=== PATIENT | male | born 1990 | race American Indian/Alaskan Native ===

== ENCOUNTER 2016-09-28 08:25 | Emergency (ER) | payer SELFPAY ==
[2016-09-28 09:33] LABS: Hematocrit 43.1 % (35.5-45.6); Hemoglobin 14.5 gm/dl (11.8-15.2); Mean Corpuscular HGB Conc 34 % (32-34); Mean Corpuscular Hemoglobin 32 pg (28-32); Mean Corpuscular Volume 94 fl (84-94); Platelet Count 263 K/mm3 (140-440); Red Blood Count 4.56 M/mm3 (3.65-5.03); White Blood Count 4.3 K/mm3 (4.5-11.0)
[2016-09-28 09:34] LABS: Basophils % (Auto) 0.3 % (0.0-1.8); Eosinophils % (Auto) 1.4 % (0.0-4.3)
--- NOTE | 2016-09-28 09:39 | XRay Report ---
ROUTINE CHEST, TWO VIEWS: History: Chest pain. PA and lateral views demonstrate the heart and mediastinal contour to be of normal size and shape. The lungs are clear and fully expanded and the soft tissues and bony structures are normal. IMPRESSION: Normal study.
[2016-09-28 09:45] LABS: Anion Gap 17 mmol/L; BUN/Creatinine Ratio 8.88; Blood Urea Nitrogen 8 mg/dL (9-20); Carbon Dioxide 25 mmol/L (22-30); Chloride 99.6 mmol/L (98-107); Creatine Kinase 114 units/L (55-170); Glucose 95 mg/dL (75-100); Potassium 4.2 mmol/L (3.6-5.0); Sodium 137 mmol/L (137-145)
--- NOTE | 2016-09-28 13:18 | Cat Scan Report ---
CT angiography of the chest including 3-D reconstructed images. History: Chest pain shortness of breath. Findings: There is no evidence of pulmonary emboli. The lungs are clear. The mediastinum and hilar regions are normal. Impression: Normal study.
[2016-09-28 14:07] VITALS: BP 132/82
--- NOTE | 2016-09-28 18:49 | Emergency Department Report ---
Entered by YUSUF HAYES, acting as scribe for CAMILA CROWDER NP. ED Chest Pain HPI - General Chief Complaint: Chest Pain Stated Complaint: CHEST PAIN AND HEADACHE Time Seen by Provider: 09/28/16 09:53 Source: patient Mode of arrival: Ambulatory Limitations: No Limitations - History of Present Illness Initial Comments: This is a 25 year old male, nontoxic, well nourished in appearance, no acute signs of distress, with PMHx of asthma, presents to ED with c/o SOB and chest pain since last night. The chest pain is described as aching and pressure in his central chest area. Patient states aggravation while sitting up and movement and alleviated when lying down. Patient denies radiation of chest pain. Patient denies difficulty breathing. Denies sick contact. Denies jaw pain or extremity pain. Patient denies long car rides, recent travels, or recent hospital stays. Patient denies blurry vision, fever, headache, stiff neck, abd pain, numbness, tingling, chills, sore throat, nausea, and vomiting. NKDA. Denies PMH. MD Complaint: chest pain -: Gradual, Last night Onset: other (during movement) Pain Location: substernal Pain Radiation: none Severity: moderate Severity scale (0 -10): 4 Quality: aching, pressure Consistency: constant Improves With: remaining still Worsens With: movement re: denies: nausea, vomting, diaphoresis, dyspnea, sense of impending doom Other Symptoms: cough. denies: fever, syncope, rash, acid taste in mouth, leg swelling, palpitations, burping Treatments Prior to Arrival: none Aspirin use within the Past 7 Days: (0) No - Related Data On Oral Contraceptives: No Previous Rx's Medication Instructions Recorded Last Taken Type Ranitidine HCl [Zantac] 300 mg PO QDAY #60 tablet 05/29/13 Unknown Rx Acetaminophen [Arthritis Pain 650 mg PO Q6H #20 tablet.er 09/28/16 Unknown Rx Relief] predniSONE [Deltasone] 20 mg PO BID #10 tab 09/28/16 Unknown Rx Allergies Allergy/AdvReac Type Severity Reaction Status Date / Time No Known Allergies Allergy Verified 09/28/16 08:35 Heart Score - HEART Score History: Slightly suspicious EKG: Non-specific Age: < 45 Risk factors: No known risk factors Troponin: < normal limit HEART Score: 1 ED Review of Systems Comment: All other systems reviewed and negative Constitutional: denies: chills, fever Eyes: denies: eye pain, eye discharge, vision change ENT: denies: ear pain, throat pain Respiratory: shortness of breath. denies: cough, orthopnea, SOB with exertion, SOB at rest, stridor, wheezing Cardiovascular: chest pain. denies: palpitations, dyspnea on exertion, orthopnea, edema, syncope, paroxysmal nocturnal dyspnea Endocrine: no symptoms reported Gastrointestinal: denies: abdominal pain, nausea, vomiting, diarrhea Genitourinary: denies: urgency, dysuria Musculoskeletal: denies: back pain, joint swelling, arthralgia Skin: denies: rash, lesions Neurological: denies: headache, weakness, numbness, paresthesias, confusion, abnormal gait, vertigo Psychiatric: denies: anxiety, depression Hematological/Lymphatic: denies: easy bleeding, easy bruising ED Past Medical Hx - Past Medical History Hx Hypertension: No Hx Heart Attack/AMI: No Hx Congestive Heart Failure: No Hx Diabetes: No Hx Deep Vein Thrombosis: No Hx Pulmonary Embolism: No Hx Liver Disease: No Hx Renal Disease: No Hx Sickle Cell Disease: No Hx Arthritis: No Hx Seizures: No Hx Kidney Stones: No Hx Asthma: Yes Hx COPD: No Hx Tuberculosis: No Hx Dementia: No Hx HIV: No Additional medical history: bleeding ulcers - Surgical History Hx Coronary Stent: No Hx Open Heart Surgery: No Hx Pacemaker: No Hx Internal Defibrillator: No Hx Cholecystectomy: No Hx Appendectomy: No Hx Breast Surgery: No - Social History Smoking Status: Current Every Day Smoker Substance Use Type: Alcohol - Medications Home Medications: Home Medications Medication Instructions Recorded Confirmed Last Taken Type Ranitidine HCl [Zantac] 300 mg PO QDAY #60 tablet 05/29/13 Unknown Rx Acetaminophen [Arthritis Pain 650 mg PO Q6H #20 tablet.er 09/28/16 Unknown Rx Relief] predniSONE [Deltasone] 20 mg PO BID #10 tab 09/28/16 Unknown Rx ED Physical Exam - General Limitations: No Limitations General appearance: alert, in no apparent distress - Head Head exam: Present: atraumatic, normocephalic - Eye Eye exam: Present: normal appearance, PERRL, EOMI. Absent: scleral icterus, conjunctival injection, nystagmus, periorbital swelling, periorbital tenderness Pupils: Present: normal accommodation. Absent: irregular - ENT ENT exam: Present: normal exam, normal orophraynx, mucous membranes moist, TM's normal bilaterally, normal external ear exam - Neck Neck exam: Present: normal inspection, full ROM. Absent: tenderness, meningismus, lymphadenopathy, thyromegaly - Respiratory Respiratory exam: Present: normal lung sounds bilaterally. Absent: respiratory distress, wheezes, rales, rhonchi, stridor, chest wall tenderness, accessory muscle use, decreased breath sounds, prolonged expiratory - Cardiovascular Cardiovascular Exam: Present: regular rate, normal rhythm, normal heart sounds. Absent: bradycardia, tachycardia, irregular rhythm, systolic murmur, diastolic murmur, rubs, gallop - GI/Abdominal GI/Abdominal exam: Present: soft, normal bowel sounds - Rectal Rectal exam: Present: deferred - Extremities Exam Extremities exam: Present: normal inspection, full ROM, normal capillary refill. Absent: tenderness, pedal edema, joint swelling, calf tenderness - Back Exam Back exam: Present: normal inspection, full ROM. Absent: tenderness, CVA tenderness (R), CVA tenderness (L), muscle spasm, paraspinal tenderness, vertebral tenderness, rash noted - Neurological Exam Neurological exam: Present: alert, oriented X3, CN II-XII intact, normal gait, reflexes normal - Psychiatric Psychiatric exam: Present: normal affect, normal mood - Skin Skin exam: Present: warm, dry, intact, normal color. Absent: rash ED Course Vital Signs 09/28/16 08:35 Temperature 99.3 F Pulse Rate 90 Respiratory 16 Rate Blood Pressure 135/87 O2 Sat by Pulse 100 Oximetry - Reevaluation(s) Reevaluation #1: 09/28/16 11:30 Patient is able to speak in full sentences with no signs of distress noted. - Consultations Consultation #1: 09/28/16 13:39 Dr Guidry has been notified of patient and lab/xray findings and agrees to d/c plan of care. GIBRAN score - Gibran Score Age > 65: (0) No Aspirin use within the Past 7 Days: (0) No 3 or more CAD Risk Factors: (0) No 2 or more Angina events in past 24 hrs: (0) No Known CAD with more than 50% Stenosis: (0) No Elevated Cardiac Markers: (0) No ST Deviation Greater than 0.5mm: (0) No GIBRAN Score: 0 ED Medical Decision Making - Lab Data Result diagrams: 09/28/16 09:03 09/28/16 09:03 - Medical Decision Making Ed course: This is a 25-year-old male that presents with costochondritis 1- patient was examined by myself. Patient does not seem in any distress. Speaking in full sentences with no distress. Xray and CTA has been obtained with normal findings. two different trop with normal results obtained. EKG unchanged x2. 2- Patient was notified of EKG findings of nonspecific ST and T wave abnormality and was instructed to follow-up with a state comptroller/primary care doctor in 24 hours or if symptoms such as severe chest pain, shortness of breathe, tiredness, headache, fever, chills, return to the emergency department as soon as possible,. 3- Patient received Prednisone and acetaminophen of discharge. They state he gets ulcers with ibuprofen. 4- At time time of discharge, the patient does not seem toxic or ill in appearance. No acute signs of distress noted. Patient agrees to discharge treatment plan of care. No further questions noted by the patient. 5- Dr. Guidry has been notified with patient and EKG/lab findings. Agrees to the discharge plan of care. ED Disposition Clinical Impression: Costochondritis, acute Disposition: DC-01 TO HOME OR SELFCARE Is pt being admited?: No Does the pt Need Aspirin: No Condition: Stable Instructions: Acetaminophen (By mouth), Prednisone (By mouth), Costochondritis (ED) Additional Instructions: As discussed about your EKG findings, follow-up with a state comptroller/primary care doctor within 24 hours or if symptoms such as severe chest pain, shortness of breathe, tiredness, headache, fever, chills, return to the emergency department as soon as possible. Take prednisone as prescibed Prescriptions: Acetaminophen [Arthritis Pain Relief] 650 mg PO Q6H #20 tablet.er predniSONE [Deltasone] 20 mg PO BID #10 tab Referrals: [facility] [Outside] - 3-5 Days [facility] [Outside] - 3-5 Days HELADIO ROSENBERG JR, MD [Staff Physician] - 3-5 Days PRIMARY MD JOÃO [Primary Care Provider] - 24 Hours OCTAVIO ROBERTS MD [Staff Physician] - 24 Hours Forms: Work/School Release Form(ED) This documentation as recorded by the FREDDY newell PEARL,accurately reflects the service I personally performed and the decisions made by ,CAMILA CROWDER, CHUY.
== END 2016-09-28 14:07 | disposition home or self-care (01) ==
LOC: ED 08:25
DX: M94.0 Chondrocostal junction syndrome [Tietze] (principal); J45.909 Unspecified asthma, uncomplicated; F17.200 Nicotine dependence, unspecified, uncomplicated
CPT/HCPCS: 36415; 71020; 71275; 80048; 82550; 82553; 83880; 84484; 85025; 85379; 93005; 93010; 99284; Q9967

== ENCOUNTER 2018-06-27 11:53 | Emergency (ER) | payer OTHER ==
[2018-06-27 12:01] VITALS: BP 116/63
--- NOTE | 2018-06-27 12:01 | Emergency Department Report ---
Blank Doc - Documentation Documentation: This is a 27-year-old male that presents with right knee pain. Stated was at work and twisted it. This initial assessment/diagnostic orders/clinical plan/treatment(s) is/are subject to change based on patient's health status, clinical progression and re- assessment by fellow clinical providers in the ED. Further treatment and workup at subsequent clinical providers discretion. Patient/guardians urged not to elope from the ED as their condition may be serious if not clinically assessed and managed. Initial orders include: 1- Patient sent to [facility] for further evaluation and treatment 2- xray
--- NOTE | 2018-06-27 13:24 | Emergency Department Report ---
ED Extremity Problem HPI - General Chief complaint: Extremity Injury, Lower Stated complaint: RT LEG PAIN Time Seen by Provider: 06/27/18 12:00 Source: patient Mode of arrival: Ambulatory Limitations: No Limitations - History of Present Illness Initial comments: Pt is a 27 yo male who presents to the ED with c/o right knee pain that began today. The patient states he was swinging a sledge hammer at work and did a twisting motion of the knee and began to feel pain. he denies any popping sensation. He denies any numbness or weakness. He is able to move the toes. He has been ambulatory with a limp. He states that last year he had a femur fx with screw placed on the right side and states that he takes oxycodone 10 mg at home in [place]. He states he did not bring the pain medication with him on the job in [place]. He denies any PMHx or any allergies to medications. Severity scale (0 -10): 10 - Related Data Previous Rx's Medication Instructions Recorded Last Taken Type Ranitidine HCl [Zantac] 300 mg PO QDAY #60 tablet 05/29/13 Unknown Rx Ibuprofen 600 mg PO Q6HR PRN #20 tablet 06/27/18 Unknown Rx oxyCODONE [Roxicodone TAB] 5 mg PO Q8HR PRN #10 tablet 06/27/18 Unknown Rx Allergies Allergy/AdvReac Type Severity Reaction Status Date / Time No Known Allergies Allergy Verified 09/28/16 08:35 ED Review of Systems ROS: Stated complaint: RT LEG PAIN Other details as noted in HPI Comment: All other systems reviewed and negative ED Past Medical Hx - Past Medical History Previous Medical History?: Yes Hx Hypertension: No Hx Heart Attack/AMI: No Hx Congestive Heart Failure: No Hx Diabetes: No Hx Deep Vein Thrombosis: No Hx Pulmonary Embolism: No Hx Liver Disease: No Hx Renal Disease: No Hx Sickle Cell Disease: No Hx Arthritis: No Hx Seizures: No Hx Kidney Stones: No Hx Asthma: Yes Hx COPD: No Hx Tuberculosis: No Hx Dementia: No Hx HIV: No Additional medical history: bleeding ulcers - Surgical History Past Surgical History?: No Hx Coronary Stent: No Hx Open Heart Surgery: No Hx Pacemaker: No Hx Internal Defibrillator: No Hx Cholecystectomy: No Hx Appendectomy: No Hx Breast Surgery: No - Social History Smoking Status: Never Smoker Substance Use Type: None - Medications Home Medications: Home Medications Medication Instructions Recorded Confirmed Last Taken Type Ranitidine HCl [Zantac] 300 mg PO QDAY #60 tablet 05/29/13 Unknown Rx Ibuprofen 600 mg PO Q6HR PRN #20 tablet 06/27/18 Unknown Rx oxyCODONE [Roxicodone TAB] 5 mg PO Q8HR PRN #10 tablet 06/27/18 Unknown Rx ED Physical Exam - General Limitations: No Limitations General appearance: alert, in no apparent distress - Head Head exam: Present: atraumatic, normocephalic - Eye Eye exam: Present: normal appearance - ENT ENT exam: Present: mucous membranes moist - Extremities Exam Extremities exam: Present: normal inspection, full ROM (FROM of the right knee with some pain upon ROM), tenderness (TTP over the right, lateral knee, no obvious deformity ), normal capillary refill, other (no obvious joint laxity ). Absent: pedal edema, joint swelling - Neurological Exam Neurological exam: Present: alert, oriented X3 - Psychiatric Psychiatric exam: Present: normal affect, normal mood - Skin Skin exam: Present: warm, dry, intact ED Course Vital Signs 06/27/18 12:00 Temperature 98.2 F Pulse Rate 81 Respiratory 16 Rate Blood Pressure 116/63 O2 Sat by Pulse 100 Oximetry - Consultations Consultation #1: 06/27/18 13:48 had private secretary call Dr. Heller, ortho foreign exchange position clerk, was advised he was in surgery Consultation #2: 06/27/18 14:[address] Heller discussed patient history and radiology results and Dr. Heller recommended for pt to follow up in office, place knee immobilizer and give pt crutches. ED Medical Decision Making - Radiology Data Radiology results: report reviewed Ordering Physician: CAMILA CROWDER NP Date of Service: 06/27/18 Procedure(s): XR knee 3V RT Accession Number(s): [id number] cc: CAMILA CROWDER NP Fluoro Time In Minutes: RIGHT KNEE, 3 views: History: Pain. Intramedullary nimco in the femoral shaft is partially imaged. The distal screw securing the intramedullary nimco is fractured. The bony architecture is intact without evidence of fracture or dislocation. No significant soft tissue abnormality is seen. IMPRESSION: Unremarkable right knee. Fractured screw securing an intramedullary nimco in the distal femur. Correlate with the patient and the image. Transcribed By: TTR Dictated By: DARWIN FERREIRA JR, MD Electronically Authenticated By: DARWIN FERREIRA JR, MD Signed Date/Time: 06/27/18 1323 Ordering Physician: LEONORA PARTIDA Date of Service: 06/27/18 Procedure(s): XR femur 2+V RT Accession Number(s): [id number] cc: LEONORA PARTIDA Fluoro Time In Minutes: RIGHT FEMUR: HISTORY: Femur fracture with surgical fixation. A remodeling fracture is identified in the mid right femur. The fracture has been secured with an intramedullary nimco and screws. The distal screw is fractured. There is no evidence for acute femoral abnormality. IMPRESSION: Unremarkable right femur. Remodeling internally fixated fracture. Transcribed By: TTR Dictated By: DARWIN FERREIRA JR, MD Electronically Authenticated By: DARWIN FERREIRA JR, MD Signed Date/Time: 06/27/18 1434 - Medical Decision Making Pt is a 27 yo male who presents to the ED with c/o right knee pain that began today. The patient states he was swinging a sledge hammer at work and did a twisting motion of the knee and began to feel pain. he denies any popping sensation. He denies any numbness or weakness. He is able to move the toes. He has been ambulatory with a limp. He states that last year he had a femur fx with screw placed on the right side and states that he takes oxycodone 10 mg at home in [place]. He states he did not bring the pain medication with him on the job in [place]. He denies any PMHx or any allergies to medications. No obvious joint laxity, no obvious joint edema. XR of the right femur and knee reveals A remodeling fracture is identified in the mid right femur. The fracture has been secured with an intramedullary nimco and screws. The distal screw is fractured. There is no evidence for acute femoral abnormality. Pt is neurovascularly intact. Discussed case with delio Sanabria who advised knee immobilizer, crutches, and to follow up in clinic as an outpatient. Pt given referral to delio Sanabria. Advised pt to please follow up within the next 2-3 days. Return to the emergency room for any new or worsening symptoms. - Differential Diagnosis fx, sprain, strain, dislocation Critical care attestation.: If time is entered above; I have spent that time in minutes in the direct care of this critically ill patient, excluding procedure time. ED Disposition Clinical Impression: Internal fixation device (pin, nimco, or screw) mechanical complication Qualifiers: Encounter type: sequela Qualified Code(s): T84.498S - Other mechanical complication of other internal orthopedic devices, implants and grafts, sequela Right knee sprain Qualifiers: Encounter type: initial encounter Involved ligament of knee: unspecified ligament Qualified Code(s): S83.91XA - Sprain of unspecified site of right knee, initial encounter Disposition: TO HOME OR SELFCARE Is pt being admited?: No Does the pt Need Aspirin: No Condition: Stable Instructions: Knee Sprain (ED), Crutch Instructions (ED), Knee Immobilizer (ED) Additional Instructions: Please follow up with Dr. Heller, orthopedic [facility]. Please follow up with a primary care doctor in 2-3 days. Take medication as prescribed. Do not work, operate heavy machinery, or drive while taking pain medication. May elevate, rest, and ice the area. Return to the emergency room for any new or worsening symptoms. Prescriptions: Ibuprofen 600 mg PO Q6HR PRN #20 tablet PRN Reason: Pain, Moderate (4-6) oxyCODONE [Roxicodone TAB] 5 mg PO Q8HR PRN #10 tablet PRN Reason: Pain , Severe (7-10) Referrals: JASMIN LEEPREWITT MD MARIA [Primary Care Provider] - 2-3 Days ANTHONY HELLER MD [Staff Physician] - [place] Time of Disposition: 14:50 Print Language: KHMER
--- NOTE | 2018-06-27 13:28 | XRay Report ---
RIGHT KNEE, 3 views: History: Pain. Intramedullary nimco in the femoral shaft is partially imaged. The distal screw securing the intramedullary nimco is fractured. The bony architecture is intact without evidence of fracture or dislocation. No significant soft tissue abnormality is seen. IMPRESSION: Unremarkable right knee. Fractured screw securing an intramedullary nimco in the distal femur. Correlate with the patient and the image.
--- NOTE | 2018-06-27 14:38 | XRay Report ---
RIGHT FEMUR: HISTORY: Femur fracture with surgical fixation. A remodeling fracture is identified in the mid right femur. The fracture has been secured with an intramedullary nimco and screws. The distal screw is fractured. There is no evidence for acute femoral abnormality. IMPRESSION: Unremarkable right femur. Remodeling internally fixated fracture.
== END 2018-06-27 15:02 | disposition home or self-care (01) ==
LOC: ED 11:53
DX: S83.91XA Sprain of unspecified site of right knee, initial encounter (principal); J45.909 Unspecified asthma, uncomplicated; W22.09XA Striking against other stationary object, initial encounter; Y93.89 Activity, other specified; Y92.89 Other specified places as the place of occurrence of the external cause; Y99.8 Other external cause status

== ENCOUNTER 2018-08-27 16:24 | Emergency (ER) | payer SELFPAY ==
[2018-08-27 16:31] VITALS: BP 129/78
--- NOTE | 2018-08-27 16:35 | Emergency Department Report ---
Chief Complaint: Extremity Injury, Lower Stated Complaint: RT LEG PAIN - HPI History of Present Illness: 27 y/o male c/o left leg pain. Patient was seen here 2 months ago for the same issue. No new injury or trauma to leg. Xrays and rx, and referral given. Patient has not followed up with the orthopedic. - Exam Vital Signs: Vital Signs 08/27/18 16:30 Temperature 98.3 F Pulse Rate 54 L Respiratory 16 Rate Blood Pressure 129/78 [Right] O2 Sat by Pulse 100 Oximetry Physical Exam: no swellig or deformity noted. NAD. MSE screening note: Focused history and physical exam performed. Due to findings the following was ordered: Discussed with patient to take OTC Ibuprofen and to follow up with Dr. Heller. Reprinted discharge summary from 06/27/18 to give to patient. ED Disposition for [facility] [place] Disposition: Z- MED SCREENING EXAM-LEFT Condition: Stable
== END 2018-08-27 16:55 | disposition left against medical advice (07) ==
LOC: ED 16:24
DX: M79.604 Pain in right leg (principal); Z53.21 Procedure and treatment not carried out due to patient leaving prior to being seen by health care provider

== ENCOUNTER 2019-04-28 20:30 | Emergency (ER) | payer SELFPAY ==
--- NOTE | 2019-04-28 20:40 | Emergency Department Report ---
Blank Doc - Documentation Documentation: 28-year-old male that presents with n/v abdominal pain and bleeding with vomit. This initial assessment/diagnostic orders/clinical plan/treatment(s) is/are subject to change based on patient's health status, clinical progression and re- assessment by fellow clinical providers in the ED. Further treatment and workup at subsequent clinical providers discretion. Patient/guardians urged not to elope from the ED as their condition may be serious if not clinically assessed and managed. Initial orders include: 1- Patient sent to MAIN ED for further evaluation and treatment 2- labs 3- UA
[2019-04-28 21:15] LABS: Basophils % (Auto) 0.4 % (0.0-1.8); Eosinophils % (Auto) 0.4 % (0.0-4.3); Hematocrit 40.3 % (35.5-45.6); Hemoglobin 13.4 gm/dl (11.8-15.2); Lymphocytes # (Auto) 1.5 K/mm3 (1.2-5.4); Mean Corpuscular HGB Conc 33 % (32-34); Mean Corpuscular Volume 93 fl (84-94); Monocytes # (Auto) 0.6 K/mm3 (0.0-0.8); Monocytes % (Auto) 8.4 % (0.0-7.3); Platelet Count 419 K/mm3 (140-440); Red Blood Count 4.36 M/mm3 (3.65-5.03)
[2019-04-28 21:26] LABS: INR 1.04 (0.87-1.13)
[2019-04-28 21:27] LABS: Partial Thromboplastin Time 30.1 Sec. (24.2-36.6)
[2019-04-28 21:58] LABS: Alanine Aminotransferase 8 units/L (7-56); Albumin 4.7 g/dL (3.9-5); BUN/Creatinine Ratio 8; Blood Urea Nitrogen 6 mg/dL (9-20); Calcium 9.8 mg/dL (8.4-10.2); Hemolysis Index 3
[2019-04-28 22:06] LABS: Bilirubin,Urine Negative (Negative); Blood,Urine Negative (Negative); Color,Urine Yellow (Yellow)
[2019-04-29] MEDS ORDERED: ONDANSETRON 4 MG/2 ML INJ IV ONE
[2019-04-29] MEDS ORDERED: KETOROLAC 30 MG/1 ML INJ IV ONE
[2019-04-29] MEDS ORDERED: SODIUM CHLORIDE 0.9% 1000 ML 1,000 ML IV ONE
--- NOTE | 2019-04-29 00:09 | Emergency Department Report ---
ED Abdominal Pain HPI - General Chief Complaint: Abdominal Pain Stated Complaint: ULCER PAIN Time Seen by Provider: 04/28/19 20:39 Source: patient Mode of arrival: Ambulatory Limitations: No Limitations - History of Present Illness Initial Comments: 28-year-old male presents to ED with right lower quadrant pain, nausea and vomiting since earlier today. Patient reports history of ulcers in the past. He does report drinking "a couple shots of alcohol" on yesterday. MD Complaint: abdominal pain -: This morning Location: RLQ Radiation: none Migration to: no migration Severity: moderate Quality: sharp Consistency: intermittent Improves With: nothing Worsens With: nothing Associated Symptoms: nausea, vomiting, diarrhea. denies: fever - Related Data Previous Rx's Medication Instructions Recorded Last Taken Type Ranitidine HCl [Zantac] 300 mg PO QDAY #60 tablet 05/29/13 Unknown Rx Ibuprofen 600 mg PO Q6HR PRN #20 tablet 06/27/18 Unknown Rx oxyCODONE [roxiCODONE] 5 mg PO Q8HR PRN #10 tablet 06/27/18 Unknown Rx Dicyclomine [Bentyl] 20 mg PO QID PRN #20 tablet 04/29/19 Unknown Rx Ondansetron [Zofran Odt] 4 mg PO Q8HR PRN #20 tab.rapdis 04/29/19 Unknown Rx Allergies Allergy/AdvReac Type Severity Reaction Status Date / Time No Known Allergies Allergy Verified 09/28/16 08:35 ED Review of Systems ROS: Stated complaint: ULCER PAIN Other details as noted in HPI Comment: All other systems reviewed and negative Constitutional: denies: chills, fever Gastrointestinal: abdominal pain, nausea, vomiting, diarrhea ED Past Medical Hx - Past Medical History Previous Medical History?: Yes Hx Hypertension: No Hx Heart Attack/AMI: No Hx Congestive Heart Failure: No Hx Diabetes: No Hx Deep Vein Thrombosis: No Hx Pulmonary Embolism: No Hx Liver Disease: No Hx Renal Disease: No Hx Sickle Cell Disease: No Hx Arthritis: No Hx Seizures: No Hx Kidney Stones: No Hx Asthma: Yes Hx COPD: No Hx Tuberculosis: No Hx Dementia: No Hx HIV: No Additional medical history: bleeding ulcers, +H-PYLORI - Surgical History Hx Coronary Stent: No Hx Open Heart Surgery: No Hx Pacemaker: No Hx Internal Defibrillator: No Hx Cholecystectomy: No Hx Appendectomy: No Hx Breast Surgery: No Additional Surgical History: pin and nimco placed to right leg. herniated disc - Social History Smoking Status: Never Smoker Substance Use Type: None - Medications Home Medications: Home Medications Medication Instructions Recorded Confirmed Last Taken Type Ranitidine HCl [Zantac] 300 mg PO QDAY #60 tablet 05/29/13 Unknown Rx Ibuprofen 600 mg PO Q6HR PRN #20 tablet 06/27/18 Unknown Rx oxyCODONE [roxiCODONE] 5 mg PO Q8HR PRN #10 tablet 06/27/18 Unknown Rx Dicyclomine [Bentyl] 20 mg PO QID PRN #20 tablet 04/29/19 Unknown Rx Ondansetron [Zofran Odt] 4 mg PO Q8HR PRN #20 tab.rapdis 04/29/19 Unknown Rx ED Physical Exam - General Limitations: No Limitations General appearance: alert, in no apparent distress - Head Head exam: Present: atraumatic, normocephalic - Eye Eye exam: Present: normal appearance, EOMI - ENT ENT exam: Present: mucous membranes moist - Neck Neck exam: Present: normal inspection - Respiratory Respiratory exam: Present: normal lung sounds bilaterally - Cardiovascular Cardiovascular Exam: Present: regular rate, normal rhythm - GI/Abdominal GI/Abdominal exam: Present: soft, tenderness (Right lower quadrant). Absent: distended, guarding, rebound, rigid - Extremities Exam Extremities exam: Present: normal inspection - Neurological Exam Neurological exam: Present: alert, oriented X3 - Psychiatric Psychiatric exam: Present: normal affect, normal mood - Skin Skin exam: Present: warm, dry, intact, normal color ED Course Vital Signs 04/28/19 04/28/19 04/28/19 20:39 23:28 23:30 Temperature 98.2 F Pulse Rate 97 H 89 82 Respiratory 18 12 12 Rate Blood Pressure 142/93 105/75 115/74 O2 Sat by Pulse 100 98 99 Oximetry 04/29/19 04/29/19 02:00 02:30 Temperature Pulse Rate 64 79 Respiratory 11 L 19 Rate Blood Pressure 100/61 96/67 O2 Sat by Pulse 100 97 Oximetry ED Medical Decision Making - Lab Data Result diagrams: 04/28/19 21:02 04/28/19 21:02 - Radiology Data Radiology results: report reviewed, image reviewed - Medical Decision Making - vitals stable - labs unremarkable - RLQ tenderness on exam - CT A/P unremarkable - will d/c home, no emesis here in ED - outpt f/u advised; return precautions given - Differential Diagnosis Appendicitis, gastroenteritis, ulcers Critical care attestation.: If time is entered above; I have spent that time in minutes in the direct care of this critically ill patient, excluding procedure time. ED Disposition Clinical Impression: Acute abdominal pain Disposition: TO HOME OR SELFCARE Is pt being admited?: No Condition: Stable Instructions: Abdominal Pain (ED) Prescriptions: Dicyclomine [Bentyl] 20 mg PO QID PRN #20 tablet PRN Reason: abdominal pain Ondansetron [Zofran Odt] 4 mg PO Q8HR PRN #20 tab.rapdis PRN Reason: Vomiting Referrals: PRIMARY CARE, [Primary Care Provider] - 3-5 Days Time of Disposition: 02:39
--- NOTE | 2019-04-29 00:59 | Cat Scan Report ---
CT abdomen pelvis w con INDICATION: RLQ pain. TECHNIQUE: All CT scans at this location are performed using the following dose modulation technique: Automated exposure control. Helical slices were obtained through the abdomen and pelvis. 100 cc of Omnipaque 30 0 is administered. COMPARISON: None available. FINDINGS: Abdomen: No acute abnormality is seen in the lower chest. The liver, spleen, pancreas, adrenal glands , and kidneys show no acute abnormalities. There is no adenopathy. There is no obstruction, inflammat ion, or free air. There are no abnormal fluid collections. Pelvis: The appendix is noted and is closely applied to the cecum. The appendix measures 5 mm in diam eter. There is no inflammatory change. The appendix enhances similarly to the remainder of the bowel. There is no abscess. There is no free air. There are no abnormal fluid collections. On review of bone windows, no acute osseous abnormalities are seen. IMPRESSION: 1. There is no obstruction, inflammation, or free air. There are no abnormal fluid collections. . Signer Name: Gm Cantu MD Signed: 04/29/2019 12:54 AM Workstation Name: [id number]
[2019-04-29 02:47] VITALS: BP 96/67
== END 2019-04-29 02:50 | disposition home or self-care (01) ==
LOC: ED 20:30
DX: R10.31 Right lower quadrant pain (principal); R11.2 Nausea with vomiting, unspecified; J45.909 Unspecified asthma, uncomplicated; Z98.890 Other specified postprocedural states; Z79.899 Other long term (current) drug therapy; Z79.1 Long term (current) use of non-steroidal anti-inflammatories (NSAID)
CPT/HCPCS: 36415; 74177; 80053; 81001; 83690; 85025; 85610; 85730; 96361; 96374; 96375; 99284; J1885; J2405; J7030; Q9967

== ENCOUNTER 2020-04-08 19:04 | Emergency (ER) | payer SELFPAY ==
[2020-04-08 20:32] VITALS: BP 123/88
[2020-04-08] MEDS ORDERED: PENICILLIN G BENZATHINE 1.2 MILLION UNIT/2 ML INJ IM ONE (21:14)
[2020-04-08] MEDS ORDERED: IBUPROFEN 600 MG TAB PO ONE (21:15)
--- NOTE | 2020-04-08 21:20 | Emergency Department Report ---
ED Male HPI - General Chief complaint: Urogenital-Male Stated complaint: GROIN/PENIS PAIN Source: patient, family Mode of arrival: Ambulatory Limitations: No Limitations - History of Present Illness Initial comments: Patient is a 29-year-old -[place] male with no past medical history presents to the ED with complaint of acute onset persistent painful swollen rash on penile shaft for the last 2 days. Patient states that rash initially began as a small papule but he kept squeezing and pressing on it and in the last 24 hours the pain and swelling has worsened. Patient admits to having sexual intercourse with no protection but he states that he does this with his and denies any extramarital sexual encounters. Patient denies dysuria, urinary frequency and urgency, penile discharge, traumatic injury, testicular pain, hematuria, low back pain, abdominal pain, nausea and vomiting, fever and chills. MD Complaint: other (penile shaft pain; swollen rash) -: Sudden, days(s) (2) Location: penis Radiation: none Severity: severe Severity scale (0 -10): 7 Quality: aching, burning, sharp Consistency: constant Improves with: none Worsens with: palpation new medication denies other symptoms, swelling, rash (swollen painful rash on penile shaft). denies: discharge, mass, urinary retention, blood in urine, dysuria, fever, nausea/vomiting, incontinence - Related Data Sexually active: Yes Previous Rx's Medication Instructions Recorded Last Taken Type Ranitidine HCl [Zantac] 300 mg PO QDAY #60 tablet 05/29/13 Unknown Rx Ibuprofen 600 mg PO Q6HR PRN #20 tablet 06/27/18 Unknown Rx oxyCODONE [roxiCODONE] 5 mg PO Q8HR PRN #10 tablet 06/27/18 Unknown Rx Dicyclomine [Bentyl] 20 mg PO QID PRN #20 tablet 04/29/19 Unknown Rx Ondansetron [Zofran Odt] 4 mg PO Q8HR PRN #20 tab.rapdis 04/29/19 Unknown Rx Doxycycline Hyclate 100 mg PO Q12H #20 tablet. 04/08/20 Unknown Rx Ibuprofen [Motrin] 600 mg PO Q8H PRN #24 tablet 04/08/20 Unknown Rx Allergies Allergy/AdvReac Type Severity Reaction Status Date / Time No Known Allergies Allergy Verified 09/28/16 08:35 ED Review of Systems ROS: Stated complaint: GROIN/PENIS PAIN Other details as noted in HPI Constitutional: denies: chills, fever Eyes: denies: eye pain, eye discharge, vision change ENT: denies: ear pain, throat pain Respiratory: denies: cough, shortness of breath, wheezing Cardiovascular: denies: chest pain, palpitations Endocrine: no symptoms reported Gastrointestinal: denies: abdominal pain, nausea, diarrhea Genitourinary: other (penile shaft pain; painful swollen rash on penile shaft). denies: urgency, dysuria Musculoskeletal: denies: back pain, joint swelling, arthralgia Skin: rash (swollen painful rash on penile shaft). denies: lesions Neurological: denies: headache, weakness, paresthesias Psychiatric: denies: anxiety, depression Hematological/Lymphatic: denies: easy bleeding, easy bruising ED Past Medical Hx - Past Medical History Previous Medical History?: Yes Hx Hypertension: No Hx Heart Attack/AMI: No Hx Congestive Heart Failure: No Hx Diabetes: No Hx Deep Vein Thrombosis: No Hx Pulmonary Embolism: No Hx Liver Disease: No Hx Renal Disease: No Hx Sickle Cell Disease: No Hx Arthritis: No Hx Seizures: No Hx Kidney Stones: No Hx Asthma: Yes Hx COPD: No Hx Tuberculosis: No Hx Dementia: No Hx HIV: No Additional medical history: bleeding ulcers, +H-PYLORI - Surgical History Past Surgical History?: Yes Hx Coronary Stent: No Hx Open Heart Surgery: No Hx Pacemaker: No Hx Internal Defibrillator: No Hx Cholecystectomy: No Hx Appendectomy: No Hx Breast Surgery: No Additional Surgical History: pin and nimco placed to right leg. herniated disc - Social History Smoking Status: Current Every Day Smoker Substance Use Type: None - Medications Home Medications: Home Medications Medication Instructions Recorded Confirmed Last Taken Type Ranitidine HCl [Zantac] 300 mg PO QDAY #60 tablet 05/29/13 Unknown Rx Ibuprofen 600 mg PO Q6HR PRN #20 tablet 06/27/18 Unknown Rx oxyCODONE [roxiCODONE] 5 mg PO Q8HR PRN #10 tablet 06/27/18 Unknown Rx Dicyclomine [Bentyl] 20 mg PO QID PRN #20 tablet 04/29/19 Unknown Rx Ondansetron [Zofran Odt] 4 mg PO Q8HR PRN #20 tab.rapdis 04/29/19 Unknown Rx Doxycycline Hyclate 100 mg PO Q12H #20 tablet. 04/08/20 Unknown Rx Ibuprofen [Motrin] 600 mg PO Q8H PRN #24 tablet 04/08/20 Unknown Rx ED Physical Exam - General Limitations: No Limitations General appearance: alert, in no apparent distress - Head Head exam: Present: atraumatic, normocephalic, normal inspection - Eye Eye exam: Present: normal appearance, PERRL, EOMI Pupils: Present: normal accommodation - ENT ENT exam: Present: normal exam, normal orophraynx, mucous membranes moist, TM's normal bilaterally, normal external ear exam - Neck Neck exam: Present: normal inspection, full ROM - Respiratory Respiratory exam: Present: normal lung sounds bilaterally. Absent: respiratory distress, wheezes, rales, rhonchi, stridor, chest wall tenderness, accessory muscle use, decreased breath sounds, prolonged expiratory - Cardiovascular Cardiovascular Exam: Present: regular rate, normal rhythm, normal heart sounds. Absent: systolic murmur, diastolic murmur, rubs, gallop - GI/Abdominal GI/Abdominal exam: Present: soft, normal bowel sounds. Absent: tenderness, guarding, rigid, hyperactive bowel sounds, hypoactive bowel sounds - exam: Present: circumcision External exam: Present: erythema, swelling, lesions (tender, swollen rash on penile shaft) - Extremities Exam Extremities exam: Present: normal inspection, full ROM, normal capillary refill - Back Exam Back exam: Present: normal inspection, full ROM. Absent: tenderness, CVA tenderness (R), CVA tenderness (L), muscle spasm, paraspinal tenderness - Neurological Exam Neurological exam: Present: alert, oriented X3, CN II-XII intact, normal gait, reflexes normal - Psychiatric Psychiatric exam: Present: normal affect, normal mood - Skin Skin exam: Present: warm, dry, intact, normal color, rash (Swollen erythematous rash on penile shaft), erythema ED Course Vital Signs 04/08/20 20:31 Temperature 97.9 F Pulse Rate 95 H Respiratory 18 Rate Blood Pressure 123/88 O2 Sat by Pulse 98 Oximetry ED Medical Decision Making - Medical Decision Making This is a 29-year-old -[place] male with no past medical history presents to the ED with complaint of acute onset persistent painful swollen rash on penile shaft for the last 2 days. Patient states that rash initially began as a small papule but he kept squeezing and pressing on it and in the last 24 hours the pain and swelling has worsened. Patient admits to having sexual intercourse with no protection but he states that he does this with his and denies any extramarital sexual encounters. In the ED, patient is alert and oriented x3 and is not in distress. Patient was empirically treated for syphilis pending the RPR test results. Patient was also treated for pain in the ED. On reevaluation, patient's pain is well controlled medications. Patient was discharged home on pain medications and empirical antibiotics and advised to follow-up with [facility] for further evaluation. Patient was also advised to abstain from sexual activity until all the test results released confirming the presence or absence of syphilis. Patient was advised to ensure that his sexual partner be evaluated and treated at the [facility]. Patient was advised to return to the ED immediately if symptoms get worse. - Differential Diagnosis Syphilis; genital herpes; STD; folliculitis; cellulitis Critical care attestation.: If time is entered above; I have spent that time in minutes in the direct care of this critically ill patient, excluding procedure time. ED Disposition Clinical Impression: Syphilis in male, Penile rash, STD (sexually transmitted disease) Disposition: TO HOME OR SELFCARE Is pt being admited?: No Does the pt Need Aspirin: No Condition: Stable Instructions: Syphilis, Antibiotic Medicine, Adult, [id number], Rash, Adult, [id number] Additional Instructions: Take medications with food, drink plenty of fluids and follow up with your primary care physician or [facility] dept for further evaluation and STD testing. Return to the ED immediately if symptoms get worse Prescriptions: Doxycycline Hyclate 100 mg PO Q12H #20 tablet. Ibuprofen [Motrin] 600 mg PO Q8H PRN #24 tablet PRN Reason: Pain Referrals: [facility] [Outside] - 3-5 Days Time of Disposition: 21:22 Print Language: MALAYSIAN
== END 2020-04-08 21:40 | disposition home or self-care (01) ==
LOC: ED 19:04
DX: A53.9 Syphilis, unspecified (principal); R21 Rash and other nonspecific skin eruption; A64 Unspecified sexually transmitted disease; J45.909 Unspecified asthma, uncomplicated; F17.200 Nicotine dependence, unspecified, uncomplicated; Z79.899 Other long term (current) drug therapy
CPT/HCPCS: 36415; 86592; 96372; 99283; J0561

== ENCOUNTER 2020-07-19 00:14 | Emergency (ER) | payer SELFPAY ==
[2020-07-19] MEDS ORDERED: KETOROLAC 30 MG/1 ML INJ IM ONE (02:37)
[2020-07-19 02:56] VITALS: BP 127/85
--- NOTE | 2020-07-19 03:06 | Emergency Department Report ---
ED General Adult HPI - General Chief complaint: Dental/Oral Stated complaint: DENTAL PAIN Time Seen by Provider: 07/19/20 01:53 Source: patient Mode of arrival: Ambulatory Limitations: No Limitations - History of Present Illness Initial comments: 29-year-old -[place] male patient presents with complaints of sudden onset of right jaw pain and clicking starting yesterday. Patient states the pain started suddenly while yawning. He states he is unable to open his jaw quietly due to the pain. Ibuprofen and hydrocodone not working per patient. He rates his pain as a 10/10 in severity and denies any fever/chills/sweats, dental pain, or difficulty swallowing. Pain radiates to his right ear and the right side of his head. No other past medical history per patient -: Sudden - Related Data Previous Rx's Medication Instructions Recorded Last Taken Type Ranitidine HCl [Zantac] 300 mg PO QDAY #60 tablet 05/29/13 Unknown Rx Ibuprofen 600 mg PO Q6HR PRN #20 tablet 06/27/18 Unknown Rx oxyCODONE [roxiCODONE] 5 mg PO Q8HR PRN #10 tablet 06/27/18 Unknown Rx Dicyclomine [Bentyl] 20 mg PO QID PRN #20 tablet 04/29/19 Unknown Rx Ondansetron [Zofran Odt] 4 mg PO Q8HR PRN #20 tab.rapdis 04/29/19 Unknown Rx Doxycycline Hyclate 100 mg PO Q12H #20 tablet. 04/08/20 Unknown Rx Ibuprofen [Motrin] 600 mg PO Q8H PRN #24 tablet 04/08/20 Unknown Rx Acetaminophen/Codeine [Tylenol 1 tab PO Q8H PRN #8 tab 07/19/20 Unknown Rx /Codeine # 3 tab] Diclofenac Sodium 50 mg PO TID PRN #21 tablet. 07/19/20 Unknown Rx methocarbamoL [Methocarbamol] 500 - 1,000 mg PO TID PRN #30 07/19/20 Unknown Rx tablet predniSONE [Deltasone] 20 mg PO TID 3 Days #6 tab 07/19/20 Unknown Rx Allergies Allergy/AdvReac Type Severity Reaction Status Date / Time No Known Allergies Allergy Verified 09/28/16 08:35 ED Review of Systems ROS: Stated complaint: DENTAL PAIN Other details as noted in HPI Constitutional: denies: chills, fever, malaise ENT: denies: throat pain, dental pain Respiratory: denies: cough Cardiovascular: denies: chest pain Hematological/Lymphatic: denies: swollen glands ED Past Medical Hx - Past Medical History Hx Hypertension: No Hx Heart Attack/AMI: No Hx Congestive Heart Failure: No Hx Diabetes: No Hx Deep Vein Thrombosis: No Hx Pulmonary Embolism: No Hx Liver Disease: No Hx Renal Disease: No Hx Sickle Cell Disease: No Hx Arthritis: No Hx Seizures: No Hx Kidney Stones: No Hx Asthma: Yes Hx COPD: No Hx Tuberculosis: No Hx Dementia: No Hx HIV: No Additional medical history: bleeding ulcers, +H-PYLORI - Surgical History Hx Coronary Stent: No Hx Open Heart Surgery: No Hx Pacemaker: No Hx Internal Defibrillator: No Hx Cholecystectomy: No Hx Appendectomy: No Hx Breast Surgery: No Additional Surgical History: pin and nimco placed to right leg. herniated disc - Social History Smoking Status: Former Smoker - Medications Home Medications: Home Medications Medication Instructions Recorded Confirmed Last Taken Type Ranitidine HCl [Zantac] 300 mg PO QDAY #60 tablet 05/29/13 Unknown Rx Ibuprofen 600 mg PO Q6HR PRN #20 tablet 06/27/18 Unknown Rx oxyCODONE [roxiCODONE] 5 mg PO Q8HR PRN #10 tablet 06/27/18 Unknown Rx Dicyclomine [Bentyl] 20 mg PO QID PRN #20 tablet 04/29/19 Unknown Rx Ondansetron [Zofran Odt] 4 mg PO Q8HR PRN #20 tab.rapdis 04/29/19 Unknown Rx Doxycycline Hyclate 100 mg PO Q12H #20 tablet. 04/08/20 Unknown Rx Ibuprofen [Motrin] 600 mg PO Q8H PRN #24 tablet 04/08/20 Unknown Rx Acetaminophen/Codeine [Tylenol 1 tab PO Q8H PRN #8 tab 07/19/20 Unknown Rx /Codeine # 3 tab] Diclofenac Sodium 50 mg PO TID PRN #21 tablet. 07/19/20 Unknown Rx methocarbamoL [Methocarbamol] 500 - 1,000 mg PO TID PRN #30 07/19/20 Unknown Rx tablet predniSONE [Deltasone] 20 mg PO TID 3 Days #6 tab 07/19/20 Unknown Rx ED Physical Exam - General Limitations: No Limitations General appearance: alert, in no apparent distress - Head Head exam: Present: atraumatic, normocephalic, other (Tenderness to palpation noted to the right TMJ without obvious swelling or skin changes; patient unable to fully open his jaw secondary to pain; popping clicking is noted with range of motion) - Eye Eye exam: Present: normal appearance - ENT ENT exam: Present: normal orophraynx - Neck Neck exam: Present: full ROM. Absent: tenderness, lymphadenopathy - Respiratory Respiratory exam: Absent: respiratory distress - Cardiovascular Cardiovascular Exam: Present: regular rate - Neurological Exam Neurological exam: Present: alert, oriented X3 - Psychiatric Psychiatric exam: Present: normal affect, normal mood - Skin Skin exam: Present: warm, dry, intact, normal color. Absent: rash ED Course Vital Signs 07/19/20 02:36 Temperature 98.4 F Pulse Rate 71 Respiratory 18 Rate Blood Pressure 127/85 O2 Sat by Pulse 100 Oximetry ED Medical Decision Making - Medical Decision Making 29-year-old -[place] male patient presents with complaints of sudden onset of right jaw pain and clicking starting yesterday. Patient states the pain started suddenly while yawning. He states he is unable to open his jaw quietly due to the pain. Ibuprofen and hydrocodone not working per patient. He rates his pain as a 10/10 in severity and denies any fever/chills/sweats, dental pain, or difficulty swallowing. Pain radiates to his right ear and the right side of his head. No other past medical history per patient +TMJ tenderness on exam. After toradol and decadron, pt can now full open jaw. I do not suspect a dislocated TMJ at this time. Vitals are normal. Will treat with nsaids and muscle relaxers. Recommend f/u with ENT. Discussed signs and symptoms that should prompt immediate return to the ED in detail with pt who verbalizes understanding. Critical care attestation.: If time is entered above; I have spent that time in minutes in the direct care of this critically ill patient, excluding procedure time. ED Disposition Clinical Impression: TMJ tenderness, right Disposition: [id number] TO HOME OR SELFCARE Is pt being admited?: No Condition: Stable Instructions: Temporomandibular Joint Syndrome Prescriptions: predniSONE [Deltasone] 20 mg PO TID 3 Days #6 tab Diclofenac Sodium 50 mg PO TID PRN #21 tablet. PRN Reason: pain methocarbamoL [Methocarbamol] 500 - 1,000 mg PO TID PRN #30 tablet PRN Reason: muscle tightness in jaw Acetaminophen/Codeine [Tylenol /Codeine # 3 tab] 1 tab PO Q8H PRN #8 tab PRN Reason: Pain , Severe (7-10) Referrals: ALYCIA REA MD [Staff Physician] - 3-5 Days
== END 2020-07-19 04:28 | disposition home or self-care (01) ==
LOC: ED 00:14
DX: M26.621 Arthralgia of right temporomandibular joint (principal); J45.909 Unspecified asthma, uncomplicated; Z79.899 Other long term (current) drug therapy; Z98.890 Other specified postprocedural states; Z87.891 Personal history of nicotine dependence
CPT/HCPCS: 96372; 99282; J1885

== ENCOUNTER 2020-07-20 14:24 | Emergency (ER) | payer SELFPAY ==
[2020-07-20 16:02] VITALS: BP 133/85
--- NOTE | 2020-07-20 16:11 | Emergency Department Report ---
ED General Adult HPI - General Chief complaint: Dental/Oral Stated complaint: RIGHT JAW POPPING Time Seen by Provider: 07/20/20 16:10 Source: patient Mode of arrival: Ambulatory Limitations: No Limitations - History of Present Illness Initial comments: 29-year-old male patient presents emergency department complaints of nontraumatic right jaw pain starting 2 days ago. Patient states pain began while he was yawning. He has noticed that his jaw "clicks" on the right side when he opens his mouth. Patient was taking ibuprofen and hydrocodone without r elief. He came to the emergency department yesterday and was diagnosed with temporomandibular joint disorder. He was prescribed steroids, anti- inflammatories, muscle relaxers, and narcotic medication. He states that these medications have been ineffective in controlling his pain. There has been no trauma or injury to the affected area. Today's pain is the same pain he was experiencing yesterday. No new symptoms. He was referred to ENT specialist. States he called the ENT specialist and his appointment is not scheduled for another 2 weeks. He does not have a dentist. Denies fever, chills, sore throat, dysphagia, hoarseness, cough, neck stiffness, headache. Denies all other complaints at this time. - Related Data Previous Rx's Medication Instructions Recorded Last Taken Type Ranitidine HCl [Zantac] 300 mg PO QDAY #60 tablet 05/29/13 Unknown Rx Ibuprofen 600 mg PO Q6HR PRN #20 tablet 06/27/18 Unknown Rx oxyCODONE [roxiCODONE] 5 mg PO Q8HR PRN #10 tablet 06/27/18 Unknown Rx Dicyclomine [Bentyl] 20 mg PO QID PRN #20 tablet 04/29/19 Unknown Rx Ondansetron [Zofran Odt] 4 mg PO Q8HR PRN #20 tab.rapdis 04/29/19 Unknown Rx Doxycycline Hyclate 100 mg PO Q12H #20 tablet. 04/08/20 Unknown Rx Ibuprofen [Motrin] 600 mg PO Q8H PRN #24 tablet 04/08/20 Unknown Rx Acetaminophen/Codeine [Tylenol 1 tab PO Q8H PRN #8 tab 07/19/20 Unknown Rx /Codeine # 3 tab] Diclofenac Sodium 50 mg PO TID PRN #21 tablet. 07/19/20 Unknown Rx methocarbamoL [Methocarbamol] 500 - 1,000 mg PO TID PRN #30 07/19/20 Unknown Rx tablet predniSONE [Deltasone] 20 mg PO TID 3 Days #6 tab 07/19/20 Unknown Rx Nystas/Diphen/Xyl Visc/Mylanta 30 ml MM Q4H PRN #1 bottle 07/20/20 Unknown Rx [Magic Mouthwash] Allergies Allergy/AdvReac Type Severity Reaction Status Date / Time No Known Allergies Allergy Verified 07/20/20 16:01 ED Review of Systems ROS: Stated complaint: RIGHT JAW POPPING Other details as noted in HPI Other: GENERAL: Negative for fever. ENT: Positive for jaw pain. CARDIOVASCULAR: Negative for chest pain. PULMONARY: Negative for shortness of breath. GASTROINTESTINAL: Negative for abdominal pain. MUSCULOSKELETAL: Negative for back pain. NEUROLOGICAL: Negative for headache. INTEGUMENTARY: Negative for rash. ED Past Medical Hx - Past Medical History Hx Hypertension: No Hx Heart Attack/AMI: No Hx Congestive Heart Failure: No Hx Diabetes: No Hx Deep Vein Thrombosis: No Hx Pulmonary Embolism: No Hx Liver Disease: No Hx Renal Disease: No Hx Sickle Cell Disease: No Hx Arthritis: No Hx Seizures: No Hx Kidney Stones: No Hx Asthma: Yes Hx COPD: No Hx Tuberculosis: No Hx Dementia: No Hx HIV: No Additional medical history: bleeding ulcers, +[id number] - Surgical History Hx Coronary Stent: No Hx Open Heart Surgery: No Hx Pacemaker: No Hx Internal Defibrillator: No Hx Cholecystectomy: No Hx Appendectomy: No Hx Breast Surgery: No Additional Surgical History: pin and nimco placed to right leg. herniated disc - Social History Smoking Status: Never Smoker Substance Use Type: None - Medications Home Medications: Home Medications Medication Instructions Recorded Confirmed Last Taken Type Ranitidine HCl [Zantac] 300 mg PO QDAY #60 tablet 05/29/13 Unknown Rx Ibuprofen 600 mg PO Q6HR PRN #20 tablet 06/27/18 Unknown Rx oxyCODONE [roxiCODONE] 5 mg PO Q8HR PRN #10 tablet 06/27/18 Unknown Rx Dicyclomine [Bentyl] 20 mg PO QID PRN #20 tablet 04/29/19 Unknown Rx Ondansetron [Zofran Odt] 4 mg PO Q8HR PRN #20 tab.rapdis 04/29/19 Unknown Rx Doxycycline Hyclate 100 mg PO Q12H #20 tablet. 04/08/20 Unknown Rx Ibuprofen [Motrin] 600 mg PO Q8H PRN #24 tablet 04/08/20 Unknown Rx Acetaminophen/Codeine [Tylenol 1 tab PO Q8H PRN #8 tab 07/19/20 Unknown Rx /Codeine # 3 tab] Diclofenac Sodium 50 mg PO TID PRN #21 tablet. 07/19/20 Unknown Rx methocarbamoL [Methocarbamol] 500 - 1,000 mg PO TID PRN #30 07/19/20 Unknown Rx tablet predniSONE [Deltasone] 20 mg PO TID 3 Days #6 tab 07/19/20 Unknown Rx Nystas/Diphen/Xyl Visc/Mylanta 30 ml MM Q4H PRN #1 bottle 07/20/20 Unknown Rx [Magic Mouthwash] ED Physical Exam - General Limitations: No Limitations - Other Other exam information: General: Awake, appropriately interactive, no acute distress. ENT: Tenderness to palpation along the distribution of the right temporomandibul ar joint without obvious deformity or dislocation. Pain is reproducible with range of motion of the jaw. There is crepitus noted with range of motion of the jaw. No malocclusion. Speaking and handling secretions without difficulty. Neck: Supple. Full range of motion intact. Cardiovascular: Normal peripheral perfusion. Pulmonary: No respiratory distress. Patient is speaking normally without use of accessory muscles. Skin: No apparent rashes or lesions. Neurological: No facial asymmetry. Speech is clear. Follows commands. Patient is alert and oriented. Musculoskeletal: Moves all four extremities spontaneously with normal range of motion. Psych: Cooperative. Appropriate mood and affect. ED Course Vital Signs 07/20/20 16:00 Temperature 98.8 F Pulse Rate 97 H Respiratory 18 Rate Blood Pressure 133/85 O2 Sat by Pulse 100 Oximetry ED Medical Decision Making - Medical Decision Making Patient presents emergency department requesting additional pain control for temporomandibular joint dysfunction. He was evaluated in the emergency department yesterday and referred to ENT specialist. He was prescribed multiple analgesics, which have provided limited relief. Pain is no different today than it was yesterday. He is unable to see the ENT specialist for another couple of weeks. He is afebrile, hemodynamically stable, airway is patent, no evidence to suggest concomitant infection or jaw dislocation warranting further diagnostic work-up on an emergent basis at this time. Patient will be given prescription for Magic Mouthwash to use in addition to previously prescribed medications. He will also be referred to multiple local dentists for prompt outpatient e valuation pending ENT consultation. Patient expressed understanding and is agreeable to plan of care. Strict return precautions provided. Repeat exam is unremarkable and benign. History, exam, diagnostic testing, and current condition do not suggest worrisome pathology to warrant further testing, continued ED treatment, admission, or surgical evaluation at this point. Given the low probability of a significant medical illness, it would be more likely to result in harm than benefit to perform further testing at this stage. Discussed findings, presumptive diagnosis, need for follow-up and specific signs/symptoms that should prompt immediate return to the emergency department. Instructions were explained in detail to the patient in addition to giving written discharge information. Patient expressed understanding and was given the opportunity to ask questions, all of which were satisfactorily answered prior to discharge home. Critical care attestation.: If time is entered above; I have spent that time in minutes in the direct care of this critically ill patient, excluding procedure time. ED Disposition Clinical Impression: History of temporomandibular joint disorder Disposition: DC-01 TO HOME OR SELFCARE Is pt being admited?: No Does the pt Need Aspirin: No Condition: Stable Instructions: Temporomandibular Joint Syndrome Additional Instructions: Use Magic Mouthwash as directed. Continue all other medications as previously prescribed. You must follow-up with a dentist for definitive management. See referral information below. Call tomorrow to schedule an appointment. Soft foods only until otherwise instructed by dentist. Return to the emergency department immediately for new or worsening symptoms. Specifically, return to the emergency department immediately for fever, worsening pain, difficulty swallowing, difficulty breathing, difficulty speaking, or any other concerns. Prescriptions: Nystas/Diphen/Xyl Visc/Mylanta [Magic Mouthwash] 30 ml MM Q4H PRN #1 bottle PRN Reason: Mouth Pain Referrals: [facility] [Outside] - 3-5 Days [facility] [Outside] - 3-5 Days Time of Disposition: 16:16
== END 2020-07-20 19:04 | disposition home or self-care (01) ==
LOC: ED 14:24
DX: R68.84 Jaw pain (principal); J45.909 Unspecified asthma, uncomplicated; Z79.899 Other long term (current) drug therapy; Z98.890 Other specified postprocedural states; Z87.39 Personal history of other diseases of the musculoskeletal system and connective tissue
CPT/HCPCS: 99281